=== PATIENT | male | born 1990 | race Hispanic/Latino ===

== ENCOUNTER 2021-01-03 17:10 | Emergency (ER) | payer SELFPAY ==
[2021-01-03 21:03] VITALS: BP 126/82
[2021-01-03] MEDS ORDERED: TETANUS,DIPH,PERTUSS(ACELL) VACCINE 0.5 ML SYRINGE IM ONE (21:31)
[2021-01-03] MEDS ORDERED: LIDOCAINE (1%) 10 MG/1 ML VIAL 20 ML MDV INFILTRATI ONE (21:31)
[2021-01-03] MEDS ORDERED: IBUPROFEN 800 MG TAB PO STA (21:35)
[2021-01-03] MEDS ORDERED: HYDROcodone/ACETAMINOPHEN 5-325 MG TAB PO ONE (21:35)
--- NOTE | 2021-01-03 21:35 | Emergency Department Report ---
ED General Adult HPI - General Chief complaint: Wound/Laceration Stated complaint: CUT ON LEFT MID FINGER Time Seen by Provider: 01/03/21 21:31 Source: patient Mode of arrival: Ambulatory Limitations: No Limitations - History of Present Illness Initial comments: 30-year-old male patient presents with complaints of left middle finger laceration today. He states he cut it on a sharp edge of a car. He is unsure of his last tetanus vaccination. Denies decreased range of motion of the finger. - Related Data Previous Rx's Medication Instructions Recorded Last Taken Type Ibuprofen [Motrin 800 MG tab] 800 mg PO Q8HR PRN #20 tablet 01/03/21 Unknown Rx Mupirocin [Bactroban 2% OINT] 1 applic TP TID 7 Days #1 tube 01/03/21 Unknown Rx Allergies Allergy/AdvReac Type Severity Reaction Status Date / Time Penicillins Allergy Anaphylaxis Verified 01/03/21 20:57 Sulfa (Sulfonamide Allergy Anaphylaxis Verified 01/03/21 20:57 Antibiotics) ED Review of Systems ROS: Stated complaint: CUT ON LEFT MID FINGER Other details as noted in HPI Musculoskeletal: denies: joint swelling, arthralgia Skin: denies: change in color ED Past Medical Hx - Past Medical History Previous Medical History?: No - Surgical History Past Surgical History?: No - Social History Smoking Status: Current Every Day Smoker Substance Use Type: None - Medications Home Medications: Home Medications Medication Instructions Recorded Confirmed Last Taken Type Ibuprofen [Motrin 800 MG tab] 800 mg PO Q8HR PRN #20 tablet 01/03/21 Unknown Rx Mupirocin [Bactroban 2% OINT] 1 applic TP TID 7 Days #1 tube 01/03/21 Unknown Rx ED Physical Exam - General Limitations: No Limitations General appearance: alert, in no apparent distress - Head Head exam: Present: atraumatic, normocephalic - Eye Eye exam: Present: normal appearance. Absent: scleral icterus - Respiratory Respiratory exam: Absent: respiratory distress - Cardiovascular Cardiovascular Exam: Present: regular rate - Extremities Exam Extremities exam: Present: other (5 cm laceration noted to volar aspect of left middle finger with mild active bleeding; patient has normal sensation; full range of motion of the fingers noted ) - Neurological Exam Neurological exam: Present: alert, oriented X3, normal gait - Psychiatric Psychiatric exam: Present: normal affect, normal mood - Skin Skin exam: Present: warm, dry, normal color. Absent: rash ED Course Vital Signs 01/03/21 20:55 Temperature 97.8 F Pulse Rate 50 L Respiratory 18 Rate Blood Pressure 126/82 O2 Sat by Pulse 99 Oximetry - Laceration /Wound Repair Finger Wound Length (cm): 5 Wound's Depth, Shape: irregular Wound Explored: no foreign body removed Irrigated w/ Saline (ccs): 40 Anesthesia: 1% Lidocaine (Simple interrupted) Volume Anesthetic (ccs): 8 (Digital block) Suture Size/Type: 3:0 Number of Sutures: 12 Layer Closure?: No Sterile Dressing Applied?: Yes Progress: Minimal bleeding occurred. Patient tolerated procedure well without any immediate complications. A normal perfusion post procedure ED Medical Decision Making - Medical Decision Making 30-year-old male patient presents with complaints of left middle finger laceration today. He states he cut it on a sharp edge of a car. He is unsure of his last tetanus vaccination. Denies decreased range of motion of the finger. Laceration repair. Patient tolerated procedure well without any immediate complications. For infection prevention. He is to return to the ED in 10 days for suture removal with patient who verbalized understanding patient is stable for discharge home denies any further questions at this time. Critical care attestation.: If time is entered above; I have spent that time in minutes in the direct care of this critically ill patient, excluding procedure time. ED Disposition Clinical Impression: Laceration of left middle finger Disposition: DC-01 TO HOME OR SELFCARE Is pt being admited?: No Condition: Stable Instructions: Sutured Wound Care, [id number] Additional Instructions: Return to the emergency department in 10 days for suture removal Prescriptions: Mupirocin [Bactroban 2% OINT] 1 applic TP TID 7 Days #1 tube Ibuprofen [Motrin 800 MG tab] 800 mg PO Q8HR PRN #20 tablet PRN Reason: pain Referrals: PRIMARY CARE,MD [Primary Care Provider] - 3-5 Days Forms: Work/School Release Form(ED)
[2021-01-03] MEDS ORDERED: LIDOCAINE (2%) 20 MG/1 ML VIAL 20 ML MDV INFILTRATI ONE (21:43)
== END 2021-01-03 22:34 | disposition home or self-care (01) ==
LOC: ED 17:10
DX: S61.213A Laceration without foreign body of left middle finger without damage to nail, initial encounter (principal); F17.200 Nicotine dependence, unspecified, uncomplicated; W26.8XXA Contact with other sharp object(s), not elsewhere classified, initial encounter; Y93.89 Activity, other specified; Y92.89 Other specified places as the place of occurrence of the external cause; Y99.8 Other external cause status
CPT/HCPCS: 90471; 90715